=== PATIENT | male | born 1980 | race Caucasian/White ===

== ENCOUNTER 2022-03-05 09:32 | Emergency (ER) | payer OTHER, SELFPAY ==
[2022-03-05 09:53] VITALS: BP 149/83; PULSE 84; RESP 16; TEMP 36.4; O2SAT 98
--- NOTE | 2022-03-05 09:53 | ED.UPPEXIN ---
HPI - Extremity Injury (Upper) General Chief Complaint: Wound/Laceration Stated Complaint: HAND LACERATION History of Present Illness HPI narrative: Pt was cutting rope loose with knife and it slipped and he stabbed himself in the left hand in the thenar emininence. Pt unsure of last tetanus. Pt has full ROM and denies numbness or tingling. the bleeding is controlled. Pt denies other injury. Related Data Home Medications Medication Instructions Recorded Confirmed albuterol See Rx Instructions .Route .COMPLEX 03/05/22 03/05/22 Allergies Allergy/AdvReac Type Severity Reaction Status Date / Time green pepper Allergy Anaphylaxis Verified 03/05/22 09:58 sim Allergy Anaphylaxis Verified 03/05/22 09:58 Review of Systems Review of Systems: All systems reviewed & are unremarkable except as noted in HPI and below Exam Const: General: healthy appearing and no acute distress Nutritional Appearance: well nourished Orientation/consciousness: patient oriented x3 Limitations: no limitations Skin: Wounds: wounds noted Other: 1.5 cm wound to left thenar eminence Neuro: General: patient oriented x3 and moves all extremities Extrem: Other: full ROM left thumb no sensory deficits Psych: Mental Status: mental status grossly normal Affect: normal affect Attitude: cooperative Course Vital Signs Vital signs: Vital Signs Temperature 97.6 F 03/05/22 09:53 Pulse Rate 84 03/05/22 09:53 Respiratory Rate 16 03/05/22 09:53 Blood Pressure 149/83 H 03/05/22 09:53 Pulse Oximetry 98 03/05/22 09:53 Oxygen Delivery Room Air 03/05/22 09:53 Temperature 97.6 F 03/05/22 09:53 Pulse Rate 84 03/05/22 09:53 Respiratory Rate 16 03/05/22 09:53 Blood Pressure 149/83 H 03/05/22 09:53 Pulse Oximetry 98 03/05/22 09:53 Oxygen Delivery Room Air 03/05/22 09:53 Procedures Laceration Laceration 1: Time: 10:10 Site: hand Size (cm): 2 Description: flap Depth: simple, single layer Local Anesthetic: lidocaine 1% and with epi Amount of anesthesia used (mL): 3 Pre-repair: wound explored (no fb or vascular or nerve involvement) ====== Skin Level ====== Size (cm): 4-0 Number of sutures: 4 Technique: simple, interrupted ====== Subcutaneous Layer ====== ====== Muscle Layer ====== ====== Tendon Layer ====== Discharge Plan Discharge Clinical Impression: Laceration Patient Disposition: Home, Self-Care Condition: Improved Instructions: Antibiotic Form, Laceration (ED) Additional Instructions: suture removal 10-12 days Prescriptions: No Action albuterol See Rx Instructions .ROUTE .COMPLEX Rx Instructions: see rx instructions Follow-up/Referrals: UNKNOWN,DOCTOR [Primary Care Provider] -
[2022-03-05] MEDS: LIDO 1%/EPINEPHRINE 1:100,000 20 ML VIAL 5 ML INFILTRATE (10:02)
[2022-03-05] MEDS: TETANUS,DIPHTHERIA,AC PERTUSSIS ADULT 0.5 ML (ADACEL) IM (10:06)
[2022-03-05 10:20] VITALS: BP 123/72; PULSE 80; RESP 16; TEMP 36.4; O2SAT 100
== END 2022-03-05 10:21 | disposition home or self-care (01) ==
PROVIDERS: Emergency Provider Emergency Medicine
DX: S61.412A Laceration without foreign body of left hand, initial encounter (principal); W26.0XXA Contact with knife, initial encounter
CPT/HCPCS: 12001; 90471; 90715; 99282

== ENCOUNTER 2022-03-15 17:16 | Emergency (ER) | payer OTHER, SELFPAY ==
[2022-03-15 17:20] VITALS: BP 136/92; PULSE 85; RESP 20; TEMP 36.5; O2SAT 97
--- NOTE | 2022-03-15 18:16 | ED.UPPEXIN ---
HPI - Extremity Injury (Upper) General Stated Complaint: suture removal Left hand Time Seen by Provider: 03/15/22 17:20 Source: patient and RN notes reviewed Mode of arrival: ambulatory Limitations: no limitations History of Present Illness complaint: injury to: left (10 days post sutured left thenar eminence 1 cm laceration----for suture removal.) Onset (ago): day(s) (10) Other Extremity Injury: Left: wrist Other injuries: none Severity: mild Relieving factors: none Exacerbating factors: none Context: laceration Associated symptoms: denies other symptoms Related Data Home Medications Medication Instructions Recorded Confirmed albuterol See Rx Instructions .Route .COMPLEX 03/05/22 03/05/22 Allergies Allergy/AdvReac Type Severity Reaction Status Date / Time green pepper Allergy Anaphylaxis Verified 03/05/22 09:58 sim Allergy Anaphylaxis Verified 03/05/22 09:58 Review of Systems Review of Systems: All systems reviewed & are unremarkable except as noted in HPI and below Constitutional: Constitutional: Reports no additional constitutional complaints Eyes: Eyes: Reports no additional eye complaints ENT: Reports system reviewed and no additional complaints, except as documented Cardiovascular: Cardiovascular: Reports no additional cardiovascular complaints Respiratory: Respiratory: Reports no additional respiratory complaints Gastrointestinal: Gastrointestinal: Reports no additional gastrointestinal complaints Musculoskeletal: Musculoskeletal: Reports no additional musculoskeletal complaints Comments: left wrist healing laceration. Integumentary/Breasts: Skin/Breast: Reports system reviewed and no additional complaints, except as docu Neurologic: Reports system reviewed and no additional complaints, except as documented Psychiatric: Psychiatric: Reports no additional psychiatric complaints Endocrine: Endocrine: Reports no additional endocrine complaints Hematologic/Lymphatic: Hematologic/Lymphatic: Reports no additional hematologic/lymphatic complaints Allergic/Immunologic: Allergic/Immunologic: Reports no additional allergic/immunologic complaints PMFSH Past Medical History Medical History Healing laceration Exam Const: General: healthy appearing and no acute distress Nutritional Appearance: well nourished Orientation/consciousness: patient oriented x3 Limitations: no limitations HENMT: Head: normal to inspection Ears: external ears normal, TM's normal bilaterally and EAC's normal General nose exam: Normal external nose present and Normal nares present Face and sinus: normal facial exam and sinuses nontender Mouth: Yes Normal oral and palatal mucosa present and Yes moist mucous membranes Teeth and gingiva: dentition normal Throat: posterior oropharynx normal Eyes: Conjunctivae: conjunctivae normal Pupils: Equal, round and reactive pupils present EOM: EOMs intact bilaterally Neck: Neck: normal visual inspection, no lymphadenopathy and no meningeal signs Chest: Chest palpation & inspection: normal inspection of the chest Resp: Effort & Inspection: normal respiratory effort Auscultation: clear to auscultation bilaterally Cardio: Rate: regular rate Rhythm: regular rhythm GI: GI Palp: Yes Soft to palpation and No Tenderness to palpation present (GI) Auscultation: normal bowel sounds : General: Yes bladder normal to palpation and Yes no CVA tenderness Back/Spine/Pelvis: Back: no CVA tenderness Skin: General skin exam: normal color Rashes: no rashes Wounds: no wounds Neuro: General: patient oriented x3, moves all extremities, no meningeal signs, no focal motor deficits and CN's II-XI intact bilaterally Cranial nerves: Yes Equal, round and reactive pupils present and Yes Nystagmus not present Speech: normal speech Gait exam (Neuro): Normal gait present Extrem: General: normal to inspection and no pedal edema Other:
[2022-03-15 18:25] VITALS: BP 136/92; PULSE 85; RESP 20; TEMP 36.5; O2SAT 97
--- NOTE | 2022-03-15 18:37 | PC.NURSE ---
X4 SUTURES REMOVED WITHOUT DIFFICULTY. LACERATION SITE CLEANSED WITH BETADINE. OBSERVED PER DR WISE, BAND AID APPLIED. NO SIGNS OF INFECTION NOTED.
== END 2022-03-15 18:30 | disposition home or self-care (01) ==
PROVIDERS: Emergency Provider Emergency Medicine
DX: S61.512D Laceration without foreign body of left wrist, subsequent encounter (principal)
CPT/HCPCS: 99281